=== PATIENT | female | born 2000 | race Caucasian/White ===

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

== ENCOUNTER → 2020-06-07 10:51 | Outpatient (CLI) | payer BC, SELFPAY ==
[2017-10-01 17:23] VITALS: BMI 27.1
== END ==
PROVIDERS: PCP Family Medicine; Referring Provider Dermatology; Visit Provider Dermatology
DX: L08.0 Pyoderma (principal); L70.0 Acne vulgaris
CPT/HCPCS: 87070; 87077; 87186; 87205

== ENCOUNTER → 2020-06-14 | Outpatient (CLI) | payer BC, SELFPAY ==
[2017-10-01 17:23] VITALS: BMI 27.1
[2020-06-18 07:44] LABS: Chlamydia By Nucleic Acid AMP Negative (Negative)
[2020-06-18 08:03] LABS: Gonococcus By Nucleic Acid AMP Negative (Negative)
== END | disposition home or self-care (01) ==
LOC: LABSPEC 11:57
PROVIDERS: PCP Family Medicine; Visit Provider Obstetrics & Gynecology
DX: Z11.3 Encounter for screening for infections with a predominantly sexual mode of transmission (principal)
CPT/HCPCS: 87491; 87591

== ENCOUNTER → 2020-08-14 | Outpatient (CLI) | payer BC, SELFPAY ==
[2017-10-01 17:23] VITALS: BMI 27.1
== END | disposition home or self-care (01) ==
LOC: MFPLAB 16:36 → LABSPEC 16:37
PROVIDERS: PCP Family Medicine; Referring Provider Family Medicine; Visit Provider Family Medicine
DX: U07.1 COVID-19 (principal)
CPT/HCPCS: 87635; U0003

== ENCOUNTER → 2021-06-17 | Outpatient (CLI) | payer BC, SELFPAY ==
[2021-06-20 00:07] LABS: Chlamydia By Nucleic Acid AMP Negative (Negative)
[2021-06-20 09:12] LABS: Gonococcus By Nucleic Acid AMP Negative (Negative)
[2021-07-02 14:06] LABS: HPV Reflexed? NOT INDICATED
== END | disposition home or self-care (01) ==
LOC: LABSPEC 13:19
PROVIDERS: PCP Family Medicine; Visit Provider Obstetrics & Gynecology
DX: Z01.419 Encounter for gynecological examination (general) (routine) without abnormal findings (principal); Z11.3 Encounter for screening for infections with a predominantly sexual mode of transmission
CPT/HCPCS: 87491; 87591; 88175; G0145

== ENCOUNTER → 2021-06-24 09:06 | Outpatient (CLI) | payer BC, SELFPAY ==
[2021-06-24 10:01] LABS: Hematocrit 39.8 % (37-47); Hemoglobin 13.1 g/dL (12.0-15.0); Mean Corp Hgb Conc 32.9 g/dL (32-36); Mean Corpuscular Hgb 27.1 pg (27.0-32.0); Mean Corpuscular Volume 82.4 fL (81-99); Platelet Count 346 K/mm3 (150-450); RBC Distribution Width CV 12.7 % (11.6-14.6); RBC Distribution Width SD 38.5 fl (35.1-43.9); Red Blood Count 4.83 M/mm3 (4.2-5.4); White Blood Count 6.9 K/mm3 (4.4-11.0)
[2021-06-24 10:57] LABS: Vitamin B12 389 pg/mL (211-911); Vitamin D,25 Hydroxy 36.8 ng/mL
[2021-06-24 11:09] LABS: Anion Gap 11 (5-15); BUN 11 mg/dL (7-18); BUN/Creat Ratio 15.3 RATIO (10-20); Chloride 105 mmol/L (98-107); Cholesterol 127 mg/dL (200); Creatinine, Serum 0.72 mg/dL (0.55-1.02); EST Glomerular Filtration Rate 108 mL/min (>60); Est Glom Filt Rate - Afr Amer 131 mL/min (>60); Glucose 90 mg/dL (74-106); High Density Lipoprotein 46 mg/dL; Iron 79 ug/dL (50-170); Potassium 3.8 mmol/L (3.5-5.1); Sodium Level 139 mmol/L (136-145); Triglycerides 107 mg/dL; Very Low Density Lipoprotein 21 mg/dL (5-40)
== END ==
PROVIDERS: PCP Family Medicine; Referring Provider Family Medicine; Visit Provider Family Medicine
DX: R53.83 Other fatigue (principal); Z13.220 Encounter for screening for lipoid disorders; Z13.1 Encounter for screening for diabetes mellitus; Z13.29 Encounter for screening for other suspected endocrine disorder; E55.9 Vitamin D deficiency, unspecified
CPT/HCPCS: 36415; 80048; 80061; 82306; 82607; 83540; 84443; 85027

== ENCOUNTER 2022-05-03 10:05 | Emergency (ER) | payer BC, SELFPAY ==
[2022-05-03 10:06] VITALS: BP 148/95; PULSE 98; RESP 18; TEMP 36.3; O2SAT 99; BMI 32.3
[2022-05-03 10:07] VITALS: BP 148/95; PULSE 98; RESP 18; TEMP 36.3; O2SAT 99
--- NOTE | 2022-05-03 10:36 | EDS_ITS ---
HPI HPI - GI History of Present Illness Chief Complaint: Abd Pain Informant: patient and parent Abdominal Pain/Flank Pain Onset: Days Context: Gradual Onset Timing: Intermittent Quality: Aching Location: Epigastric Current Severity: Mild Maximum Severity: Mild Worsened by: Car ride Relieved by: Nothing Nausea/Vomiting/Emesis GI Symptom: Positive for Nausea and Vomiting Onset: Today Severity: Mild Diarrhea/Melena/Hematochezia GI Symptom: Negative for Diarrhea, Melena or Hematochezia Associated Symptoms Associated Symptoms: Positive for Dysuria; Negative for Frequency, Hematuria or Urgency Narrative Narrative: 21-year-old female past medical history of anxiety. States that she thought about a week ago she was get a UTI. On Wednesday she dropped off a urinalysis to her primary care physician's office but has not gotten the results as of yet. She is currently on Pyridium. States her last several days she is felt worse with nausea and vomiting. Bloating. Increased gas and, upper abdominal discomfort. Today subjectively she had fever and chills. No melena. No diarrhea. Prior similar symptoms: Yes Recent Illness/Hospitalization: No PFSH PFSH Medical History no medical history Home Medications Albuterol Sulfate [Proair Hfa] 2 inh PO Q4H PRN Asthma 01/30/15 [History Last Taken 02/05/15 09:30] cetirizine 10 mg capsule (Zyrtec) 10 mg PO DAILY 01/30/15 [History Last Taken Unknown] fluticasone propionate 50 mcg/actuation nasal spray,suspension 2 spray DAILY 01/30/15 [History Last Taken Unknown] minocycline 50 mg capsule (Minocin) 50 mg PO DAILY 01/30/15 [History Last Taken Unknown] docusate sodium 100 mg capsule (DOK) 100 mg PO BID PRN PRN Constipation ##10 02/05/15 [Rx Last Taken Unknown] hydrocodone-acetaminophen 5-325mg 5mg-325mg 1 - 2 tab PO Q6H PRN PRN Pain ##60 02/05/15 [Rx Last Taken Unknown] promethazine 25 mg tablet 25 mg PO Q4H PRN PRN Nausea ##10 02/05/15 [Rx Last Taken Unknown] sulfamethoxazole 400 mg-trimethoprim 80 mg tablet (Bactrim) 1 tab PO BID #7 tabs 02/05/15 [Rx Last Taken Unknown] diazepam 5 mg tablet 5 mg PO Q8H PRN PRN Muscle Spasm #10 tabs 02/09/15 [Rx Last Taken Unknown] promethazine 25 mg tablet 25 mg PO Q6H PRN PRN Nausea ##20 02/09/15 [Rx Last Taken Unknown] ondansetron 4 mg disintegrating tablet 8 mg PO Q8H PRN nausea and vomiting #10 tabs 05/03/22 [Rx Last Taken Unknown] sulfamethoxazole 800 mg-trimethoprim 160 mg tablet (Bactrim DS) 1 tab PO BID 7 days #14 tabs 05/03/22 [Rx Last Taken Unknown] Allergy/AdvReac Type Severity Reaction Status Date / Time Penicillins AdvReac Rash Verified 05/03/22 10:08 Social History Smoking Status: Never smoker ROS ROS ED ROS Narrative Nausea and vomiting. Dysuria. Abdominal pain. Review of Systems ROS Unobtainable: Denies due to encephalopathy Constitutional Constitutional ED: Reports chills, fever(s) and subjective; Denies sweats or weight loss ENT ENT ED: Denies ear pain Cardiovascular Cardiovascular: Denies chest pain Respiratory/Chest Respiratory/Chest: Denies cough Gastrointestinal Gastrointestinal: Reports abdominal pain, nausea and vomiting; Denies constipation, diarrhea or melena Genitourinary Genitourinary ED: Reports dysuria; Denies hematuria Musculoskeletal Musculoskeletal: Denies arthralgias Integumentary Denies abscess Neurologic Neurologic: Denies headache(s) Psychiatric Psychiatric: Denies anxiety Endocrine Endocrinology: Denies polydipsia Hematologic/Lymphatic Hematologic/Lymphatic: Denies easy bleeding Allergic/Immunologic Allergic/Immunologic ED: Denies mouth swelling EXAM Physical Exam Narrative Exam Narrative: 21-year-old female no acute distress. Vital signs are stable and afebrile. Mom at bedside. H EENT exam unremarkable. Moist mucous membranes. Neck nontender no lymphadenopathy. Lungs clear to auscultation bilaterally. Heart regular rhythm no murmur. Abdomen soft nondistended normal bowel sounds no peritoneal signs. No right upper or right lower quadrant tenderness. No hernia or mass no signs of obstruction. Mild epigastric tenderness. Moving all 4 extremities. Back nontender. Neurologically she is awake and alert no focal motor deficits. Const Vital Signs: 05/03/22 10:06 05/03/22 10:07 Temperature 97.3 F L 97.3 F L Temperature Source Temporal Temporal Pulse Rate 98 98 Respiratory Rate 18 18 Blood Pressure 148/95 H 148/95 H Blood Pressure Mean 112 112 Pulse Ox 99 99 Oxygen Delivery Method Room Air Room Air Positive well nourished, well developed and obese; Negative for cachectic, contractures or unkempt General Appearance ED: well developed and NAD; Negative for unkempt, cachectic, contractures or pallor Nutritional Appearance: obese; Negative for cachectic HEENT Reports moist mucous membranes; Denies dry mucous membranes normocephalic and atraumatic; Negative for trauma or tenderness Mouth ED: No dry mucous membranes Mouth: No dry mucous membranes Eyes PERRL and EOMs intact bilaterally General Eye ED: Negative for pale conjunctiva or scleral icterus Neck no lymphadenopathy, supple and no JVD General: Negative for tenderness Carotids: Negative for other Lymph Lymphatic: Negative for other Resp normal respiratory effort and clear to auscultation bilaterally Effort and Inspection: Negative for respiratory distress Auscultation: Negative for rales, rhonchi or wheezes Cardio regular rate, regular rhythm, S1 normal heart sound, S2 normal heart sound and no murmurs Rate: Negative for bradycardia Rhythm: Negative for abnormal rhythm GI non-tender, non-distended and no masses GI Narrative: Mild epigastric tenderness. Right upper and right lower quadrants are unremarkable. Inspection: Negative for abdominal distention Auscultation: normoactive bowel sounds Palpation: soft and tender Back/Spine no CVA tenderness Extremity full ROM General Extremety ED: Negative for edema or tenderness General Extremity: Negative for edema Neuro CN's II-XII intact bilaterally, moves all extremities and no sensory deficits noted Sensorium / Orientation: alert, oriented to person, oriented to place and oriented to time; Negative for orientation impaired, confused, lethargic or stuporous Motor Exam: strength 5/5 throughout Psych mental status grossly normal and thought process normal Appearance: Negative for unkempt Attitude: No agitated Mood & Affect: Negative for depressed, anxious or tearful Skin no wounds General Skin Exam: Negative for jaundice or pallor Lesions: no lesions Rashes: no rashes Trauma: Negative for abrasion Nails: Negative for discolored MDM MDM MDM Narrative Medical decision making narrative: 21-year-old female with some mild abdominal pain nausea. Treated with IV fluids and IV Zofran. Screening labs and urinalysis will be obtained. She does not need imaging at this time. Repeat exam patient doing well at 11:25 AM. Reportedly her primary care physician's office sent a urine culture there is one I see listed in outpatient labs but said it was canceled dental note there was not enough urine of the due to the Pyridium or what ever so I repeated a urine culture UA today looks like it may be positive for UTI she has been treated with Bactrim in the past and had good results she will be started on Bactrim twice a day for 7 days and follow-up with her primary care physician and the culture results. She knows return if worse. She also be written for Zofran. We did go over other lab work and it was all unremarkable. Lab Data Attestation: I reviewed the patient's lab results. Lab results narrative: CBC normal. White count 8.8. H&H of 12.1 and 37. Platelets normal. Electrolytes unremarkable gap of 8 normal BUN and creatinine 8 and 0.8. Liver enzymes normal. Lipase normal at 145. Urinalysis shows positive nitrates 150 occult blood. White 0 white cells 0 red cells 1+ bacteria. Due to her symptoms occult trauma I will treat her for a UTI. test is negative. Labs: Laboratory Results - last 24 hr 05/03/22 05/03/22 05/03/22 10:27 10:35 10:35 WBC 8.8 RBC 4.61 Hgb 12.1 Hct 37.6 MCV 81.6 MCH 26.2 L MCHC 32.2 RDW Std Deviation 39.7 RDW Coeff of Irma 13.3 Plt Count 370 MPV 10.2 Immature Gran % (Auto) 0.500 Neut % (Auto) 70.2 H Lymph % (Auto) 19.4 [place] % (Auto) 4.9 Eos % (Auto) 4.7 Baso % (Auto) 0.3 Absolute Neuts (auto) 6.2 Absolute Lymphs (auto) 1.70 Nucleated RBC % 0 Sodium 139 Potassium 3.8 Chloride 109 H Carbon Dioxide 22.0 Anion Gap 8 BUN 8 Creatinine 0.80 Estim Creat Clear Calc 127.29 Est GFR (MDRD) Af Amer 114 Est GFR (MDRD) Non-Af 95 BUN/Creatinine Ratio 10.0 Glucose 106 Calcium 8.7 Total Bilirubin 0.20 AST 12 L ALT 25 Alkaline Phosphatase 57 Total Protein 7.1 Albumin 3.2 Globulin 3.9 Albumin/Globulin Ratio 0.8 L Lipase 145 Serum , Qual Urine Color SEE COMMENT BELOW Urine Clarity Cloudy Urine pH 5.0 Ur Specific [place] 1.015 Urine Protein 30 H Urine Glucose (UA) Normal Urine Ketones Negative Urine Occult Blood 150 H Urine Nitrite Positive H Urine Bilirubin 6 H Urine Urobilinogen 8 H Ur Leukocyte Esterase Negative Urine RBC 0-5 SEEN Urine WBC 0-5 SEEN Ur Squamous Epith Cells 0-5 SEEN Urine Bacteria 1+ Urine Mucus 0 SEEN 05/03/22 10:35 WBC RBC Hgb Hct MCV MCH MCHC RDW Std Deviation RDW Coeff of [place] Plt Count MPV Immature Gran % (Auto) Neut % (Auto) Lymph % (Auto) [place] % (Auto) Eos % (Auto) Baso % (Auto) Absolute Neuts (auto) Absolute Lymphs (auto) Nucleated RBC % Sodium Potassium Chloride Carbon Dioxide Anion Gap BUN Creatinine Estim Creat Clear Calc Est GFR (MDRD) Af Amer Est GFR (MDRD) Non-Af BUN/Creatinine Ratio Glucose Calcium Total Bilirubin AST ALT Alkaline Phosphatase Total Protein Albumin Globulin Albumin/Globulin Ratio Lipase Serum , Qual NEGATIVE Urine Color Urine Clarity Urine pH Ur Specific [place] Urine Protein Urine Glucose (UA) Urine Ketones Urine Occult Blood Urine Nitrite Urine Bilirubin Urine Urobilinogen Ur Leukocyte Esterase Urine RBC Urine WBC Ur Squamous Epith Cells Urine Bacteria Urine Mucus Discharge Plan Triage Chief Complaint: Abd Pain ED Provider: Jai Rhodes Dx/Rx/DC Orders Clinical Impression: Urinary tract infection, Nausea & vomiting Instructions: ED Cystitis Female Adult Prescriptions: New sulfamethoxazole-trimethoprim [Bactrim DS] 800-160 mg tablet 1 tab PO BID 7 Days Qty: 14 0RF ondansetron 4 mg tablet,disintegrating 8 mg PO Q8H PRN (Reason: nausea and vomiting) Qty: 10 0RF No Action minocycline [Minocin] 50 MG capsule 50 mg PO DAILY fluticasone propionate 1 SPRAY spray,suspension 2 spray NASAL DAILY cetirizine [Zyrtec] 10 MG capsule 10 mg PO DAILY Albuterol Sulfate [Proair Hfa] 8.5 GM Hfa.Aer.Ad 2 inh PO Q4H PRN (Reason: Asthma) Label Comments: hydrocodone-acetaminophen 1 TABLET tablet 1 - 2 tab PO Q6H PRN PRN (Reason: Pain) Qty: 60 0RF promethazine 25 MG tablet 25 mg PO Q4H PRN PRN (Reason: Nausea) Qty: 10 0RF docusate sodium [DOK] 100 MG capsule 100 mg PO BID PRN PRN (Reason: Constipation) Qty: 10 0RF sulfamethoxazole-trimethoprim [Bactrim] 1 EACH tablet 1 tab PO BID Qty: 7 0RF diazepam 5 MG tablet 5 mg PO Q8H PRN PRN (Reason: Muscle Spasm) Qty: 10 0RF promethazine 25 MG tablet 25 mg PO Q6H PRN PRN (Reason: Nausea) Qty: 20 0RF Primary Care Provider: Mayo Mckeon Referrals: Mayo Mckeon MD [Primary Care Provider] - As soon as possible Activity Restrictions/Additional Instructions: Plenty of fluids and rest. Follow-up with your doctor with your urine culture results. Bactrim twice a day for 1 week. Zofran as needed for nausea. Follow-up if not improving or return if worse. Your other lab work was normal. Disposition Disposition: Home, Self Care
[2022-05-03 10:43] LABS: Mucous, Urine 0 SEEN /hpf (<or=2+)
[2022-05-03 10:49] LABS: Glucose, Dipstick Normal (Normal); Ketone-Dipstick Negative (Negative); Leukocyte Esterase-Dipstick Negative /ul (Negative); Nitrite-Dipstick Positive (Negative); Occult Blood-Urine 150 /ul (Negative); Protein-Dipstick 30 mg/dl (Negative); Specific Gravity, Urine 1.015 (1.002-1.030); Urine Clarity Cloudy (Clear); Urine Urobilinogen 8 mg/dl (Normal)
[2022-05-03] MEDS: Ondansetron 4 MG/2 ML Vial IV (10:49)
[2022-05-03] MEDS: 0.9% Normal Saline 1,000 ML 1000 ML IV (10:49)
[2022-05-03 10:51] LABS: Color, Urine SEE COMMENT BELOW (Yellow); Urine Bilirubin Dipstick 6 mg/dL (Negative)
[2022-05-03 10:52] LABS: Internal QC Validated? YES +Cl - CLEAR BKGD; Pregnancy, Serum, hCG Quali. NEGATIVE Negative
[2022-05-03 10:55] LABS: Absolute Neutrophil Count 6.2 X10^3/uL (2.0-7.7); Basophil# 0.03 X10^3/uL; Basophil% 0.3 % (0-1); Eosinophil# 0.41 X10^3/uL; Eosinophils% 4.7 % (0-5); Hematocrit 37.6 % (37-47); Hemoglobin 12.1 g/dL (12.0-15.0); Lymphocyte % 19.4 % (19-41); Mean Corp Hgb Conc 32.2 g/dL (32-36); Mean Corpuscular Hgb 26.2 pg (27.0-32.0); Mean Corpuscular Volume 81.6 fL (81-99); Mean Platelet Vol. 10.2 fl (6.2-12.0); Monocyte# 0.43 X10^3/uL; Monocyte% 4.9 % (0-10); NRBC Flagged by Analyzer 0 % (0-5); Neutrophil # 6.17 X10^3/uL (2.7-7.7); Neutrophil % 70.2 % (47-70); Platelet Count 370 K/mm3 (150-450); RBC Distribution Width CV 13.3 % (11.6-14.6); RBC Distribution Width SD 39.7 fl (35.1-43.9); Red Blood Count 4.61 M/mm3 (4.2-5.4); White Blood Count 8.8 K/mm3 (4.4-11.0)
[2022-05-03 10:55] LABS: Bacteria 1+ /hpf (None Seen); Red Blood Cells-Urine 0-5 SEEN /hpf (0-5); Squamous Epithelial Cells - UA 0-5 SEEN /hpf (5-10); White Blood Cells 0-5 SEEN /hpf (0-5)
[2022-05-03 11:04] LABS: ALB/GLOB Ratio 0.8 RATIO (0.9-2.4); AST(SGOT) 12 U/L (15-37); Alanine Aminotransfer ALT/SGPT 25 U/L (13-56); Albumin, Serum 3.2 g/dL (3.2-5.0); Alkaline Phosphatase 57 U/L (45-117); Anion Gap 8 (5-15); BUN 8 mg/dL (7-18); Calcium,Total 8.7 mg/dL (8.5-10.1); Chloride 109 mmol/L (98-107); EST Glomerular Filtration Rate 95 mL/min (>60); Est Glom Filt Rate - Afr Amer 114 mL/min (>60); Estimated Creatinine Clearance 127.29 ml/min; Globulin 3.9 g/dL (2.2-4.2); Glucose 106 mg/dL (74-106); Lipase 145 U/L (73-393); Potassium 3.8 mmol/L (3.5-5.1); Protein, Total 7.1 g/dL (6.4-8.2); Sodium Level 139 mmol/L (136-145)
[2022-05-03] MEDS: Smz/Tmp Ds Tablet 1 TABLET PO (11:41)
== END 2022-05-03 11:46 | disposition home or self-care (01) ==
PROVIDERS: Emergency Provider Emergency Medicine; PCP Family Medicine; Visit Provider Emergency Medicine
DX: N39.0 Urinary tract infection, site not specified (principal); E66.9 Obesity, unspecified; Z68.32 Body mass index [BMI] 32.0-32.9, adult
CPT/HCPCS: 80053; 81001; 83690; 84703; 85025; 87086; 87088; 96361; 96374; 99284; J7030; A4216; J2405

== ENCOUNTER → 2023-03-10 | Outpatient (CLI) | payer OTHER, SELFPAY ==
--- NOTE | 2023-03-10 14:49 | RAD_ITS ---
INDICATION: FALL WITH INJURY EXAMINATION/TECHNIQUE: X-RAY - XR Ribs Unilateral Min 2 Views-LEFT rib cage COMPARISON: None. FINDINGS: SOFT TISSUES: No soft tissue swelling or gas. BONES: No displaced fracture. No sclerotic or destructive changes observed. VISUALIZED LUNGS: Clear. No pneumothorax. RAD/Ribs Unil 2V No CXR IMPRESSION: No evidence of displaced LEFT rib fracture. Electronically Signed: Abad Leon MD at 17:28 EDT ,
== END | disposition home or self-care (01) ==
LOC: MTRAD 14:45
PROVIDERS: PCP Family Medicine; Referring Provider Family Medicine; Visit Provider Family Medicine
DX: R07.81 Pleurodynia (principal); W19.XXXA Unspecified fall, initial encounter
CPT/HCPCS: 71100

== ENCOUNTER → 2023-09-15 | Outpatient (CLI) | payer OTHER, SELFPAY ==
--- NOTE | 2023-09-15 15:28 | RAD_ITS ---
STUDY: X-RAY - LUMBOSACRAL SPINE REASON FOR EXAM: Female, 22 years old. pain TECHNIQUE: 6 view(s) of the lumbosacral spine were obtained including flexion and extension. COMPARISON: None FINDINGS: Normal lumbar lordosis. There is minor levoscoliosis or splinting possibly due to muscle spasm. There is normal alignment of the vertebrae. Normal vertebral bodies and endplates. Normal disc space heights. Films obtained in flexion and extension demonstrate no evidence for instability. Normal bilateral sacral ala, sacroiliac joints, and visualized sacrum. Normal visualized soft tissue structures. RAD/L/S Spine w Bend Min 6 Vw IMPRESSION: Minor levoscoliosis otherwise normal lumbar spine including flexion and extension. Electronically Signed: Leighton Beard MD at 22:59 EST ,
[2023-09-15 18:02] LABS: Vitamin B12 313 pg/mL (211-911); Vitamin D,25 Hydroxy 46.6 ng/mL
[2023-09-15 18:16] LABS: ALB/GLOB Ratio 0.8 RATIO (0.9-2.4); AST(SGOT) 177 U/L (15-37); Alanine Aminotransfer ALT/SGPT 90 U/L (13-56); Albumin, Serum 3.5 g/dL (3.2-5.0); Alkaline Phosphatase 60 U/L (45-117); Anion Gap 6 (5-15); BUN 11 mg/dL (7-18); BUN/Creat Ratio 13.8 RATIO (10-20); Calcium,Total 8.9 mg/dL (8.5-10.1); Chloride 109 mmol/L (98-107); EST Glomerular Filtration Rate 94 mL/min (>60); Est Glom Filt Rate - Afr Amer 114 mL/min (>60); Globulin 4.2 g/dL (2.2-4.2); Glucose 97 mg/dL (74-106); Potassium 3.8 mmol/L (3.5-5.1); Protein, Total 7.7 g/dL (6.4-8.2); Sodium Level 140 mmol/L (136-145); T4 Free Direct 1.08 ng/dL (0.76-1.46); Thyroid Stim Hormone (TSH) 1.34 uIU/mL (0.358-3.74)
== END | disposition home or self-care (01) ==
LOC: MTLAB 15:27
PROVIDERS: PCP Family Medicine; Referring Provider Family Medicine; Visit Provider Family Medicine
DX: M54.50 Low back pain, unspecified (principal); Z13.29 Encounter for screening for other suspected endocrine disorder; R63.5 Abnormal weight gain; E55.9 Vitamin D deficiency, unspecified; E53.8 Deficiency of other specified B group vitamins
CPT/HCPCS: 36415; 72114; 80053; 82306; 82533; 82607; 84439; 84443

== ENCOUNTER → 2023-11-10 | Outpatient (CLI) | payer OTHER, SELFPAY ==
--- OUTSIDE RECORDS SUMMARY | 2023-11-10 09:02 | XMS RPT_ITS | CCD ---
Author Name Unknown Address [address] [place] [id number] Organization [facility] Care Team Providers Care Bioanalyst Name Role Phone MAURICIO SANDRA Unavailable Unavailabl e RANMAURICIO ENCISO Unavailable Unavailabl e ISABELLA SANDRAER Deonna Unavailable Unavailabl e BOAZ, ISABELLAER B Unavailable Unavailabl e ISABELLA SANDRAER B Unavailable Unavailabl e RANISABELLA ENCISOER B Unavailable Unavailabl e ISABELLA SANDRAER B Unavailable Unavailabl e BOAZ, ISABELLAER B Unavailable Unavailabl e Problems Active Problems Problem Classification Problem Date Documented Da te Episodic/Chronic Intracranial injury (2 sources) Concussion without loss of consciousness, subsequent encounter; Translations: [Concussion without loss of consciousness, subsequent encounter] Onset: 08-31-2018 Episodic Past or Other Problems Problem Classification Problem Date Documented Da te Episodic/Chronic Conditions associated with dizziness or vertigo (2 sources) Benign paroxysmal vertigo, left ear; Translations: [Benign paroxysmal vertigo, left ear] Onset: 01-04-2018 Episodic Encounters Encounter Date Encounter Type Care Provider Facility Start: 08-31-2018 Patient encounter procedure [facility] Start: 08-22-2018 Patient encounter procedure [facility] Start: 01-04-2018 Patient encounter procedure [facility] Start: 11-25-2017 Patient encounter procedure [facility] Summary Purpose Family History No Family History Records Found Advance Directives No Advanced Directives Records Found Additional Source Comments INFORMATION SOURCE (unrecogn ized section and content) FOR RECORDS PERTAINING TO PATIENTS WHO ARE OR HAVE BEEN ENROLLED IN A CHEMICAL DEPENDENCY/SUBSTANCEABUSE PROGRAM, SOME INFORMATION MAY BE OMITTED. This clinical summary was aggregated from multiple sources. Caution should be exercised in using it in the provision of clinical care. This summary normalizes information from multiple sources, and as a consequence, information in this document may materially change the coding, format and clinical context of patient data. In addition, data may be omitted in some cases. CLINICAL DECISIONS SHOULD BE BASED ON THE PRIMARY CLINICAL RECORDS. [facility]. provides no warranty or guarantee of the accuracy or completeness of information in this document.
[2023-11-10 11:15] LABS: Hepatitis B Surface Antibody Non-Reactive; Vitamin B12 485 pg/mL (211-911)
[2023-11-10 11:20] LABS: ALB/GLOB Ratio 0.9 RATIO (0.9-2.4); AST(SGOT) 16 U/L (15-37); Alanine Aminotransfer ALT/SGPT 37 U/L (13-56); Albumin, Serum 3.4 g/dL (3.2-5.0); Alkaline Phosphatase 59 U/L (45-117); Anion Gap 6 (5-15); BUN 9 mg/dL (7-18); BUN/Creat Ratio 12.5 RATIO (10-20); Calcium,Total 8.7 mg/dL (8.5-10.1); Chloride 111 mmol/L (98-107); Creatinine, Serum 0.72 mg/dL (0.55-1.02); EST Glomerular Filtration Rate 106 mL/min (>60); Est Glom Filt Rate - Afr Amer 128 mL/min (>60); Ferritin 13 ng/mL (8-252); GGTP 13 U/L (5-55); Globulin 3.7 g/dL (2.2-4.2); Glucose 86 mg/dL (74-106); Iron 51 ug/dL (50-170); Potassium 3.6 mmol/L (3.5-5.1); Protein, Total 7.1 g/dL (6.4-8.2); Sodium Level 141 mmol/L (136-145)
[2023-11-11 15:08] LABS: Deamidated Gliadin IgA 4 units (0-19); Deamidated Gliadin IgG 4 units (0-19); Endomysial Antibody IgA Negative (Negative); HEPATITIS B SURFACE AG Negative (Negative); Hep C Antibodies Non Reactive (Non Reactive); Hepatitis A AB, Total Negative (Negative); Hepatitis A IgM Antibody Negative (Negative); Hepatitis B Core AB IgM Negative (Negative); Immunoglobulin A 170 mg/dL (87-352); t-Transglutaminase IgA <2 U/mL (0-3)
== END | disposition home or self-care (01) ==
LOC: MTLAB 08:40
PROVIDERS: PCP Family Medicine; Referring Provider Family Medicine; Visit Provider Family Medicine
DX: R79.89 Other specified abnormal findings of blood chemistry (principal); E53.8 Deficiency of other specified B group vitamins
CPT/HCPCS: 36415; 80053; 80074; 82607; 82728; 82784; 82977; 83516; 83540; 86255; 86706; 86708

== ENCOUNTER → 2023-11-24 | Outpatient (CLI) | payer OTHER, SELFPAY ==
--- NOTE | 2023-11-24 16:00 | RAD_ITS ---
STUDY: X-RAY - CERVICAL SPINE REASON FOR EXAM: Female, 23 years old. Left neck pain TECHNIQUE: 5 view(s) of the cervical spine were obtained including oblique views. COMPARISON: None FINDINGS: Normal anterior atlantoaxial articulation. Normal odontoid process. There is straightening of the normal cervical lordosis. Normal vertebral bodies and endplates. Normal disc space heights. Normal visualized intervertebral neuroforamina. The soft tissue structures are unremarkable. RAD/Cerv Spine 4 or 5 Views IMPRESSION: Straightening of the normal cervical lordosis. Electronically Signed: Hemant Feng MD at 14:45 EDT ,
== END | disposition home or self-care (01) ==
PROVIDERS: PCP Family Medicine; Referring Provider Family Medicine; Visit Provider Family Medicine
DX: R68.89 Other general symptoms and signs (principal)
CPT/HCPCS: 72050

== ENCOUNTER → 2024-07-17 | Outpatient (CLI) | payer OTHER, SELFPAY | END | disposition home or self-care (01) | PROVIDERS: PCP Family Medicine; Referring Provider Family Medicine; Visit Provider Family Medicine | DX: M25.561 Pain in right knee (principal) | CPT/HCPCS: 73562 ==

== ENCOUNTER 2024-08-07 11:29 | Outpatient (RCR) | payer OTHER, SELFPAY ==
--- NOTE | 2024-08-07 18:30 | HP.PTEVAL_ITS ---
Patient's Visit Information Visit Information Visit Information: MARCI JASSO is a 23 year old F referred to Physical Therapy by Dr. Damián Gale MD with a diagnosis of R patellar dislocation. Date of Evaluation: 08/07/24 Physical Therapist: Chris Gómez DPT Visit Plan Frequency: 1x/Week Duration: 6 Weeks Plan: 1) quad and glute med strengthening. 2) progress to gym exercises with focus on LE strengthening 3) add in proprioception exercises on multiple surfaces. Subjective Subjective: Pt. is here today for her initial evaluation with diagnosis of R instability of patellofemoral joint. Pt. reports ~6 weeks ago her dog jumped off the porch and hit her R knee. Her mother was able to assist with relocating her patella. Pt. has a history of MPFL surgery ~9 years ago. This is the first occurrence since surgery. Pt. reports recently being less active after being and doing a lot of projects around the home. Pt. is hopeful to increase her strength in attempt to save off any need for surgical interventions. Pain L knee: Pain Intensity (Out of 10): 1 Pain Intensity Range: 0 and 1 Comment: medial joint line pain Objective Objective: POSTURE: Pt. has decent posture in stance. No major varus or valgus positioning. PALPATION: pt. had some pain with medial joint line. ROM: PT. has full ROM without increase in symptoms. Pt. has good HS and hip flexor length. MMT: Pt. has equal strength in BLEs, except R knee ext 32.1# and L knee ext 47.9#. She also had a discrepency at er hip abd 22.4# on R and 38# on L. GAIT: Pt. has fairly normal gait pattern noted. STAIRS: normal Balance/Special Test Scores Lower Extremity Functional Score: 56 Goals Goal 1:: LTG: Pt. to be I with HEP. Goal Time Frame: 4-6 Weeks Goal 2:: STG: Pt. to have 0-1/10 medial knee pain with all activities. Goal Time Frame: 2 Weeks Goal 3:: LTG: Pt. to have symmetrical strength between bilateral LEs. Goal Time Frame: 4-6 Weeks Goal 4:: LTG: Pt. to resume all activities without increase in symptoms. Goal Time Frame: 6-8 Weeks Rehabilitation Potential Physical Therapy Diagnosis: Pt. has signs and symptoms consistent with R patellar dislocation. This occurrence was more of a contact trauma rather than a marked instability. She does have some weakness in her R quad and glute med and would benefit from PT work on hip and quad strengthening. Rehabilitation Potential: Excellent Anticipated Interventions Patient/Client Instruction: Educate patient on: Condition, Plan of Care, Risk Factors and Benefits of Fitness Program For the Purpose of:: To improve self management, To prevent re-injury, To improve ability to perform tasks related to life management and To improve tolerance to ADL's Therapeutic Exercise to Include: Strength training, Power training, Balance training, Postural training and Flexibilty training For the Purpose of:: To decrease pain, To improve nutrient delivery to tissue, To increase oxygenation perfusion, To improve muscle performance and motor function, To improve ability to perform ADL's, To improve performance and independence with ADL's, To decrease level of supervision to perform tasks and To improve ability of physical actions for home/community/work/leisure Text: Thank you for the opportunity to evaluate your patient. For Medicare and Medicare HMO plans, please review the plan of care and approve it. It will need to be FAXED BACK to us at [phone] for Medicare purposes. For Medicare only, by signing this I certify the plan of care. Please let me know if there are questions or concerns regarding this plan of care. Physician Signature: Date:
== END 2024-08-07 19:00 | disposition home or self-care (01) ==
LOC: PT 11:29
PROVIDERS: PCP Family Medicine; Referring Provider Orthopaedic Surgery Sports Medicine; Visit Provider Orthopaedic Surgery Sports Medicine
DX: M25.361 Other instability, right knee (principal)
CPT/HCPCS: 97161

== ENCOUNTER → 2024-08-10 | Outpatient (CLI) | payer OTHER, SELFPAY ==
[2024-08-10 15:59] LABS: ALB/GLOB Ratio 0.9 RATIO (0.9-2.4); AST(SGOT) 13 U/L (15-37); Alanine Aminotransfer ALT/SGPT 25 U/L (13-56); Albumin, Serum 3.4 g/dL (3.2-5.0); Alkaline Phosphatase 61 U/L (45-117); Anion Gap 7 (5-15); BUN 8 mg/dL (7-18); BUN/Creat Ratio 10.8 RATIO (10-20); Chloride 108 mmol/L (98-107); Cholesterol 132 mg/dL (200); Creatinine, Serum 0.74 mg/dL (0.55-1.02); EST Glomerular Filtration Rate 102 mL/min (>60); Est Glom Filt Rate - Afr Amer 124 mL/min (>60); Ferritin 16 ng/mL (8-252); Globulin 3.8 g/dL (2.2-4.2); Glucose 80 mg/dL (74-106); High Density Lipoprotein 45 mg/dL; Iron 60 ug/dL (50-170); Protein, Total 7.2 g/dL (6.4-8.2); Sodium Level 138 mmol/L (136-145); Triglycerides 86 mg/dL; Very Low Density Lipoprotein 17 mg/dL (5-40); Vitamin B12 614 pg/mL (211-911)
[2024-08-10 16:15] LABS: Absolute Lymphocyte Count 1.97 X10^3/uL (0.83-4.51); Absolute Neutrophil Count 3.9 X10^3/uL (2.0-7.7); Basophil# 0.06 X10^3/uL; Basophil% 0.9 % (0-1); Eosinophil# 0.55 X10^3/uL; Hematocrit 40.9 % (37-47); Hemoglobin 13.4 g/dL (12.0-15.0); Lymphocyte # 1.97 X10^3/ul (0.83-4.51); Lymphocyte % 28.8 % (19-41); Mean Corp Hgb Conc 32.8 g/dL (32-36); Mean Corpuscular Hgb 28.1 pg (27.0-32.0); Mean Corpuscular Volume 85.7 fL (81-99); Mean Platelet Vol. 10.8 fl (6.2-12.0); Monocyte# 0.33 X10^3/uL; Monocyte% 4.8 % (0-10); NRBC Flagged by Analyzer 0 % (0-5); Neutrophil # 3.92 X10^3/uL (2.7-7.7); Neutrophil % 57.2 % (47-70); Platelet Count 349 K/mm3 (150-450); RBC Distribution Width CV 12.3 % (11.6-14.6); RBC Distribution Width SD 38.8 fl (35.1-43.9); Red Blood Count 4.77 M/mm3 (4.2-5.4); White Blood Count 6.9 K/mm3 (4.4-11.0)
[2024-08-10 16:20] LABS: Erythrocyte Sedimentation Rate 13 mm/hr (0-30)
[2024-08-15 11:09] LABS: Deamidated Gliadin IgA 3 units (0-19); Deamidated Gliadin IgG 3 units (0-19); Endomysial Antibody IgA Negative (Negative); Immunoglobulin A 171 mg/dL (87-352); t-Transglutaminase IgA <2 U/mL (0-3)
[2024-08-16 12:08] LABS: Beef <0.10 kU/L (Class 0); Chocolate <0.10 kU/L (Class 0); Codfish <0.10 kU/L (Class 0); Corn <0.10 kU/L (Class 0); Egg, Whole 0.13 kU/L (Class 0/I); Milk (Cow) 0.33 kU/L (Class I); Mussels <0.10 kU/L (Class 0); Peanut <0.10 kU/L (Class 0); Salmon <0.10 kU/L (Class 0); Shrimp <0.10 kU/L (Class 0); Soybean <0.10 kU/L (Class 0); Tuna <0.10 kU/L (Class 0)
== END | disposition home or self-care (01) ==
PROVIDERS: PCP Family Medicine; Referring Provider Family Medicine; Visit Provider Family Medicine
DX: Z00.00 Encounter for general adult medical examination without abnormal findings (principal); R53.83 Other fatigue; E53.8 Deficiency of other specified B group vitamins
CPT/HCPCS: 36415; 80053; 80061; 82306; 82607; 82728; 82784; 83516; 83540; 84443; 85025; 85652; 86003; 86005; 86255

== ENCOUNTER → 2025-03-28 | Outpatient (CLI) | payer OTHER, SELFPAY | END | disposition home or self-care (01) | LOC: LABSPEC 17:11 | PROVIDERS: PCP Family Medicine; Referring Provider Advanced Practice Midwife; Visit Provider Advanced Practice Midwife | DX: Z00.00 Encounter for general adult medical examination without abnormal findings (principal) | CPT/HCPCS: 88175; G0145 ==